=== PATIENT | female | born 1990 | race Caucasian/White ===

== ENCOUNTER → 2020-12-18 | Outpatient (CLI) | payer BC ==
--- NOTE | 2020-12-18 11:07 | Diagnostic Imaging Report ---
INDICATION: survey. TECHNIQUE: Multiple real-time grayscale images were obtained over the gravid uterus. COMPARISON: None. FINDINGS: There is a single live fetus in a breech presentation. heart rate was recorded at 143 BPM. Placenta is anterior. Amniotic fluid volume is normal. survey shows kidneys, bladder, and stomach to be unremarkable. brain is unremarkable. There is a four-chamber heart. There is a three-vessel cord with normal insertion. spine is unremarkable. Biometrical measurements are as follows: Biparietal 4.83 cm, age 20 weeks 5 days. Head circumference 18.07 cm, age 20 weeks 4 days. Abdominal circumference 16.08 cm, age 21 weeks 2 days. Femur length 3.47 cm, age 21 weeks 0 days. Sonographic estimate age: 21 weeks 0 days. Sonographic estimated date of delivery: 04/30/2021. Estimated Weight: 392 gm (+/- 57 gm). LMP percentile: 69%. heart rate: 143 beats per minute. number: 1 of 1. IMPRESSION: Single live IUP of 21 weeks 0 days gestational age. Estimated date of confinement sonographically is 04/30/2021. Dictated by: Dictated on workstation # [id number]
== END ==
LOC: RAD 10:00
PROVIDERS: ATTEND Nurse Practitioner Women's Health
DX: Z34.02 Encounter for supervision of normal first pregnancy, second trimester (principal); Z3A.21 21 weeks gestation of pregnancy
CPT/HCPCS: 76805

== ENCOUNTER 2021-02-02 14:28 | Outpatient (CLI) | payer BC ==
[~2021-02-02] VITALS: Ht 170.2 cm; Wt 116.5 kg
[2021-02-02 14:55] VITALS: BP 121/67
[2021-02-02] MEDS ORDERED: PREN-37 PO (15:06)
[2021-02-02 15:10] VITALS: BP 121/67
[2021-02-02 16:00] VITALS: BP 121/67
--- NOTE | 2021-02-03 08:25 | Physician Query-Final Dx ---
BRET AQUINO 02/03/21 0825: Clinic Account Progress/Dx Physician Query: Please give diagnosis Please include # weeks gestation Date of Service Feb 02, 2021 at 14:28 RIOS LLANOS MD 02/03/21 1710: Clinic Account Progress/Dx DIAGNOSIS: Diagnosis 27 weeks gestation with decreased movement BRET AQUINO Feb 03, 2021 08:25 RIOS LLANOS MD Feb 03, 2021 17:10
== END 2021-02-02 16:01 | disposition home or self-care (01) ==
LOC: WSo 14:28 → LDRP 14:29 → WSo 16:01
PROVIDERS: ATTEND Obstetrics & Gynecology
DX: O36.8120 Decreased fetal movements, second trimester, not applicable or unspecified (principal); Z3A.27 27 weeks gestation of pregnancy
CPT/HCPCS: 99212

== ENCOUNTER 2021-05-05 15:05 | Inpatient (IN) | payer BC ==
[~2021-05-05] VITALS: Ht 170.2 cm; Wt 115.0 kg
[2021-05-05] VITALS (7 sets, daily range): BP systolic 119–131; BP diastolic 59–81
[~2021-05-05 15:05] MED LIST: PREN-37 PO
[2021-05-05] MEDS ORDERED: D5 LR IV SOLUTION 1,000 ML IV ONE (16:12)
--- NOTE | 2021-05-05 17:23 | History & Physical-OB ---
NIRMAL AGUILAR 05/05/21 1723: OB - Chief Complaint & HPI Date/Time Date of Admission: Date of Admission: Date seen by a Provider: May 05, 2021 Time Seen by a Provider: 17:30 Chief Complaint/History OB-Reason for Admission/Chief: Onset of Labor Hx : 1 Hx Para: 0 Expected Date of Delivery: May 03, 2021 Gestational Age in Weeks: 40 Gestational Age in Days: 2 History of Labs O pos Antibody neg RPR NR HBsAb NR HIV NR RI GBS neg Allergies and Home Medications Allergies Coded Allergies: acetaminophen (Verified Allergy, Severe, 02/02/21) seizures codeine (Verified Allergy, Mild, Hives, 02/02/21) Patient Home Medication List Home Medication List Reviewed: Yes Vit/Iron Fumarate/FA ( Tablet) 1 Each Tablet, 1 EACH PO DAILY, (Reported) Entered as Reported by: DELBERT SCHILLING on 02/02/21 1506 OB - History Hx of Present Care: Yes Ultrasounds: Normal mid trimester US Obstetrical Complications: None Information Induced Hypertension: No Maternal Gestational Diabetes: No Obstetrical History Hx : 1 Hx Para: 0 Hx # Term Pregnancies: 0 Hx # Pregnancies: 0 Number of Living Children: 0 Patient Past Medical History Childhood asthma Social History/Family History Smoking Cessation: Former smoker (quit 04/2019) Immunizations Tetanus Booster (TDap): Less than 5yrs (03/10/2021) GBS Status: Negative OB - Admission Exam Physical Exam Heart: Rhythm Normal Lungs: Clear Abdomen: Gravid Extremities: Edema (bilateral lower extremity edema - mild) Cervical Dilatation: 3cm Effacement: Other (60) Station: -2 Membranes: Intact Heart Rate: 130's Accelerations: Accelerations Present Decelerations: No Decelerations Short Term Variability: Present Senior Care Variability: Average (6-25) Contractions on Admission: < 5 Minutes Apart (every 4 minutes) Date/Time Contractions Began;: 05/05/2021, 04:00 Frequency of Contractions: Every 4 minutes Duration: 1 minute Intensity: Moderate (6-8/10) Calderón Scoring Tool (Modified) Dilation (cm): 3-4cm (2) Effacement (%): 51-79% (2) Descent/Station: -2 (1) Cervix Consistency: Soft (2) Cervix Position: Anterior (2) Subtract 1 point for: Postdate (-1), Nulliparity (-1) Calderón Score: 7 Labs GBS - OB - Assessment/Plan/Diagnosis Assessment Assessment: other (Observation for active labor, possible induction due to post-term status) Admission Dx 30 yo @ 40.2 GBS neg Admission Status: Inpatient Order (span 2 midnights) Reason for Inpatient Admission: Observation for active labor, possible induction due to post-term status Plan Plan: Expectant Management MONSE GOMEZ DO 05/06/21 0831: Allergies and Home Medications Allergies Coded Allergies: acetaminophen (Verified Allergy, Severe, 02/02/21) seizures codeine (Verified Allergy, Mild, Hives, 02/02/21) Patient Home Medication List Vit/Iron Fumarate/FA ( Tablet) 1 Each Tablet, 1 EACH PO DAILY, (Reported) Entered as Reported by: DELBERT SCHILLING on 02/02/21 1506 OB - Assessment/Plan/Diagnosis Plan Induction Method: per Misoprostol Protocol Other Plan Verification and Attestation of Medical Student E/M Service A medical student performed and documented this service in my presence. I reviewed and verified all information documented by the medical student and made modifications to such information, when appropriate. I personally performed the physical exam and medical decision making. Monse Gomez, May 06, 2021,08:30 NIRMAL AGUILAR May 05, 2021 17:23 MONSE GOMEZ DO May 06, 2021 08:31
[2021-05-05 17:27] LABS: BASOPHILS % (AUTO) 0 % (0-10); EOSINOPHILS # (AUTO) 0.2 10^3/uL (0.0-0.3); EOSINOPHILS % (AUTO) 1 % (0-10); HEMATOCRIT 38 % (35-52); HEMOGLOBIN 12.8 g/dL (11.5-16.0); LYMPHOCYTES # (AUTO) 4.6 10^3/uL (1.0-4.0); LYMPHOCYTES % (AUTO) 31 % (12-44); MEAN CORPUSCULAR HEMOGLOBIN 32 pg (25-34); MEAN CORPUSCULAR HGB CONC 34 g/dL (32-36); MEAN CORPUSCULAR VOLUME 93 fL (80-99); MEAN PLATELET VOLUME 10.1 fL (9.0-12.2); MONOCYTES # (AUTO) 0.8 10^3/uL (0.0-1.0); MONOCYTES % (AUTO) 5 % (0-12); NEUTROPHILS # (AUTO) 9.2 10^3/uL (1.8-7.8); NEUTROPHILS % (AUTO) 62 % (42-75); PLATELET COUNT 454 10^3/uL (130-400); WHITE BLOOD COUNT 14.8 10^3/uL (4.3-11.0)
[2021-05-05] MEDS ORDERED: NS (IVPB) 250 ML ONE (17:29)
[2021-05-05] MEDS ORDERED: NS (IVPB) 250 ML IV ONE (17:30)
[2021-05-05] MEDS: D5 LR IV SOLUTION 1,000 ML IV SCH ×2 (17:33→23:54)
[2021-05-05 17:44] LABS: EOSINOPHILS % (MANUAL) 2 %; LYMPHOCYTES % (MANUAL) 28 %; MONOCYTES % (MANUAL) 5 %; NEUTROPHILS % (MANUAL) 65 %; RBC MORPH NORMAL
[2021-05-06] VITALS (65 sets, daily range): BP systolic 106–154; BP diastolic 55–94
[2021-05-06] MEDS ORDERED: fentaNYL 2 mcg/ml BUPIVA 0.125 100 ML ONE ×2 (08:15→16:37)
[2021-05-06] MEDS ORDERED: OXYTOCIN PRE-MIX DRIP 500 ML IV ONE ×2 (08:15→20:21)
[2021-05-06] MEDS ORDERED: BUPIVACAINE 0.75% INJECTION 16.7 ML in NS (IVPB) 83.3 ML IV SCH (09:00)
[2021-05-06] MEDS: D5 LR IV SOLUTION 1,000 ML IV SCH ×2 (09:15→16:45)
[2021-05-06] MEDS ORDERED: fentaNYL INJ 100 MCG/2 ML AMP ONE ×4 (09:25→20:37)
[2021-05-06] MEDS ORDERED: OXYTOCIN PRE-MIX DRIP 500 ML IV SCH ×2 (09:30→19:15)
[2021-05-06] MEDS ORDERED: LIDOCAINE PF 2% 5 ML (XYLOCAINE) VIAL ONE ×4 (14:57→20:15)
[2021-05-06] MEDS ORDERED: BUPIVACAINE 0.5% 30 ML (SENSORCAINE) VIAL ONE (17:07)
[2021-05-06] MEDS ORDERED: METOCLOPRAMIDE INJ 10 MG/2 ML (REGLAN) ONE (19:14)
[2021-05-06] MEDS ORDERED: CITRIC ACID/SOB CIT (BICITRA) 30 ML UDC ONE (19:14)
[2021-05-06] MEDS ORDERED: METOCLOPRAMIDE INJ 10 MG/2 ML (REGLAN) IV ONE (19:15)
[2021-05-06] MEDS ORDERED: MEASLES,MUMPS,RUBELLA 1 EA INJ SC SCH (19:15)
[2021-05-06] MEDS ORDERED: LACTATED RINGERS 1,000 ML IV PRN ×2 (19:15)
[2021-05-06] MEDS ORDERED: ONDANSETRON 4 MG/2 ML (SDV) Z0FRAN IVP PRN (19:15)
[2021-05-06] MEDS ORDERED: FAMOTIDINE 20MG/2ML IV (PEPCID) ONE (19:15)
[2021-05-06] MEDS ORDERED: TETANUS,DIPTH,PERTUSS P/F (BOOSTRIX) 0.5 ML VIAL IM SCH (19:15)
[2021-05-06] MEDS ORDERED: CATHETER FLUSH 10 ML SYR IV PRN (19:15)
[2021-05-06] MEDS ORDERED: ceFAZolin 2 GM IV Premixed 50 ML IV ONE (19:15)
[2021-05-06] MEDS ORDERED: CITRIC ACID/SOB CIT (BICITRA) 30 ML UDC PO ONE (19:15)
[2021-05-06] MEDS ORDERED: NALOXONE 0.4 MG/ML 1 ML (NARCAN) VIAL IV PRN (19:15)
--- NOTE | 2021-05-06 19:16 | Discharge Inst-Women's Service ---
Discharge Inst-Women's Serv Depart Medication/Instructions New, Converted or Re-Newed RX: Transmitted to Pharmacy Final Diagnosis POD 2 PLTCS Problems Reviewed?: Yes Consults/Follow Up Additional Follow Up: Yes Orders/Referrals Dr. Gomez in 7-10 days and in 6 weeks Activity Activity: Activity as Tolerated Driving Instructions: No Driving for 1 Week NO SMOKING: NO SMOKING Nothing Inside Vagina: No Douching, No [place], No Tampons Diet Discharge Diet: No Restrictions Symptoms to Report to : Bleeding Excessive, Pain Increased, Fever Over 101 Degrees F, Vaginal Bleeding Increase, Questions/Concerns For Any Problems or Questions: Contact Your Physician Skin/Wound Care Infection Signs and Symptoms: Increased Redness, Foul Odor of Wound, Increased Drainage, Skin Itchy or Has a Rash, Increased Swelling, Temperature Above 101 F Operative Area Clean and Dry: Keep Incision Clean/Dry Stitches/[place]/Dermabond: Dermabond, Care of Stitches Bathing Instructions: MONSE Spear DO May 06, 2021 19:16
[2021-05-06] MEDS ORDERED: DOCU100C37 PO (19:18)
[2021-05-06] MEDS ORDERED: OXYC1TAB87 PO (19:18)
[2021-05-06] MEDS ORDERED: IBUP-844 PO (19:18)
--- NOTE | 2021-05-06 19:24 | Progress Note ---
Standard Progress Note Progress Notes/Assess & Plan Date Seen by a Provider: May 06, 2021 Time Seen by a Provider: 19:00 Progress/Assessment & Plan Patient admitted last night for postdates IOL. She received misoprostol PO overnight, and AROM and Pitocin augmentation was started this AM. She had an epidural placed, and progressed to 5 cm, at approximately 15:30, there was a notable caput and suspicion of OP presentation. She continued to contract regularly on Pitocin augmentation. However, at 1900 she was found to have made no cervical change, nor decent in station. Due to suspected OP and CPD, discussion was made to proceed with primary delivery. Risk were reviewed. She was given the alternative to continue with induction and pitocin augmentation, but wished to proceed with delivery. Will await OR crew to begin. MONSE ALLEN DO May 06, 2021 19:24
[2021-05-06] MEDS ORDERED: ceFAZolin 2 GM IV Premixed 50 ML ONE (19:28)
[2021-05-06] MEDS ORDERED: KETOROLAC 30 MG/ML VIAL ONE (19:54)
[2021-05-06] MEDS ORDERED: ONDANSETRON 4 MG/2 ML (SDV) Z0FRAN ONE (19:54)
[2021-05-06] MEDS ORDERED: METHYLERGONOVINE 0.2 MG/ML (METHERGINE) AMP ONE (20:11)
[2021-05-06] MEDS ORDERED: CATHETER FLUSH 10 ML SYR IV SCH (22:00)
[2021-05-06] MEDS: DOCUSATE SODIUM 100 MG (COLACE) CAP PO SCH (22:11)
[2021-05-06] MEDS: KETOROLAC 30 MG/ML VIAL IV SCH (22:12)
[2021-05-06] MEDS: oxyCODONE/APAP 5/325MG (PERCOCET 5) TABLET PO PRN ×2 (22:13→22:53)
[2021-05-07] MEDS: METOCLOPRAMIDE 10 MG (REGLAN) TAB PO SCH ×4 (00:37→19:35)
[2021-05-07 00:41] VITALS: BP 124/65
--- NOTE | 2021-05-07 01:55 | OPERATIVE REPORT ---
DATE OF SERVICE: PREOPERATIVE DIAGNOSES: 1. A 30-year-old G1, P0 at 40 weeks and 3 days gestation. 2. Cephalopelvic disproportion suspected occiput posterior. POSTOPERATIVE DIAGNOSES: 1. A 30-year-old G1, P0 at 40 weeks and 3 days gestation. 2. Cephalopelvic disproportion suspected occiput posterior. 3. Confirmed occiput posterior. SURGEON: Wilian Allen DO. ANESTHESIA: Epidural, which was bolused. ESTIMATED BLOOD LOSS: 600 mL. URINE OUTPUT: 100 mL clear at the end of the procedure. FLUIDS: 1000 mL lactated Ringer's solution. FINDINGS: A live male weighing 7 pounds 10 ounces, Apgars of 8 and 9. Grossly normal appearing uterus, bilateral fallopian tubes and ovaries. SPECIMEN SENT: None. INDICATIONS FOR PROCEDURE: This 30-year-old female patient who was admitted for induction of labor for postdates. Her cervix was unfavorable and she received cervical ripening overnight. She can see my preoperative note for complete details pertaining to the patient's labor course and indication for . OPERATIVE REPORT IN DETAIL: Once in the operating room, epidural analgesia was bolused and found to be adequate. She was placed in supine position with leftward tilt, prepped and draped in normal sterile fashion. Timeout was performed and anesthesia was tested. I then make a Pfannenstiel skin incision with a knife and carried down to underlying fascia using Bovie cautery. The fascial incision extended laterally using Bovie cautery. The superior aspect of the fascial incision was then grasped with Aixa clamps, tented up and dissected off the underlying rectus muscles. The inferior aspect of fascial incision was then grasped with Aixa clamps, tented up and dissected off the underlying rectus muscles. Rectus muscles were then dissected down the midline using sharp dissection, which exposed the peritoneum, which I entered bluntly and extended using blunt traction. Vipin ring retractor was placed in the peritoneal incision, which offers excellent lateral sidewall retraction. I identified the lower uterine segment, which was found to be thinned out and make a low transverse incision through the vesicouterine peritoneum and bluntly dissected off the lower uterine segment, creating a bladder flap. I then proceeded with myotomy until membranes were visualized, at which point I extended the uterine incision laterally and superiorly using bandage scissors. The was found in the vertex presentation, occiput posterior. With gentle fundal pressure, the 's head was elevated up the incision where it delivered through the incision. The nares and oropharynx were bulb suctioned. Anterior and posterior shoulders were delivered. The infant was then brought to the operative field with cord doubly clamped and cut and was handed off to waiting nurses in attendance. Cord blood was collected, 3-vessel cord with intact placenta was delivered spontaneously thereafter. IV Pitocin was initiated to facilitate uterine contraction. Uterine fundus confirmed by manual massage. The uterus was exteriorized and cleared of all endometrial clots and debris. I then proceeded with closing the uterine incision using 0 Vicryl suture in a running locked fashion. Second layer of imbricating 0 Monocryl was placed. Excellent hemostasis was noted after doing this. I then placed the uterus back in the pelvis and copiously irrigated the pelvis using normal saline. Once again, there was no active bleeding noted from any of my dissection planes. I placed Surgicel over the apex with my incision due to some persistent oozing, but no active bleeding. I then also covered this with Interceed. I then removed the Vipin ring retractor and then proceeded with closing the peritoneum using 3-0 Vicryl suture in a running fashion. The rectus muscle reapproximated using 3-0 Vicryl suture in interrupted fashion. The fascia was reapproximated using 0 Vicryl suture in a running fashion. The subcutaneous tissue was reapproximated using 3-0 plain interrupted subcutaneous stitch and skin reapproximated using 4-0 Monocryl running subcuticular. Dermabond was applied to incision and sterile dressing with adhesive white tape. The patient tolerated the procedure well and sent to recovery area in stable condition. Lap and sponge counts were correct at the end of the procedure. Instrument counts correct as well. Two grams of Ancef given preoperatively for infection prophylaxis. Also 0.2 mg of Methergine are given IM intraoperatively due to some persistent uterine atony. Job ID: [id number] DocumentID: [id number] Dictated Date: 05/06/2021 20:43:04 Roving Sizer Date: 05/07/2021 01:55:14 Dictated By: WILIAN ALLEN DO
[2021-05-07] MEDS: oxyCODONE/APAP 5/325MG (PERCOCET 5) TABLET PO PRN ×3 (03:45→20:54)
[2021-05-07 03:48] VITALS: BP 119/75
[2021-05-07] MEDS: KETOROLAC 30 MG/ML VIAL IV SCH (06:09)
[2021-05-07 06:21] LABS: BASOPHILS % (AUTO) 0 % (0-10); EOSINOPHILS % (AUTO) 0 % (0-10); HEMATOCRIT 35 % (35-52); HEMOGLOBIN 11.6 g/dL (11.5-16.0); LYMPHOCYTES # (AUTO) 2.7 10^3/uL (1.0-4.0); LYMPHOCYTES % (AUTO) 11 % (12-44); MEAN CORPUSCULAR HEMOGLOBIN 31 pg (25-34); MEAN CORPUSCULAR HGB CONC 33 g/dL (32-36); MEAN CORPUSCULAR VOLUME 93 fL (80-99); MONOCYTES # (AUTO) 1.3 10^3/uL (0.0-1.0); MONOCYTES % (AUTO) 6 % (0-12); NEUTROPHILS # (AUTO) 19.5 10^3/uL (1.8-7.8); NEUTROPHILS % (AUTO) 82 % (42-75); PLATELET COUNT 360 10^3/uL (130-400); WHITE BLOOD COUNT 23.7 10^3/uL (4.3-11.0)
[2021-05-07 09:11] VITALS: BP 105/58
[2021-05-07] MEDS: DOCUSATE SODIUM 100 MG (COLACE) CAP PO SCH ×2 (09:18→21:06)
--- NOTE | 2021-05-07 10:34 | Postpartum Progress Note ---
Post Op Post-operative Day #1 Subjective: Patient is without complaints. Ambulating, voiding after kline removed. Tolerating a regular diet without nausea or vomiting. Normal lochia. Pain is well controlled with oral pain medications. . Objective: Please see below for vitals, which have been reviewed. Physical Exam: General - Alert and oriented, no apparent distress Abdomen - Soft, appropriately tender to palpation, non-distended, fundus firm at umbilicus Incision - Pfannenstiel incision is clean, dry and intact with skin glue; no erythema or induration, no drainage Extremities - no edema, negative Esperanza's bilaterally Assessment: Post-operative day #1, status post primary low transverse section due to CPD. Recovering well, hemodynamically stable Plan: Routine post-operative care. Viable male infant. Desires circumcision. Encourage breast feeding. VTE prophylaxis: SCDs. Encourage ambulation. Ferrous sulfate supplementation. Plan for discharge tomorrow. Vitals - Labs Vital Signs - I&O Vital Signs Date Time Temp Pulse Resp B/P (MAP) Pulse Ox O2 Delivery O2 Flow Rate FiO2 05/07/21 09:11 36.7 73 18 105/58 (74) 97 Room Air 05/07/21 03:48 36.7 73 18 119/75 (90) 97 Room Air 05/07/21 00:41 36.7 73 18 124/65 (84) 97 Room Air 05/06/21 22:17 37.0 75 18 136/92 (107) 95 Room Air 05/06/21 21:30 37.4 14 154/94 (114) 97 Room Air 05/06/21 21:27 Room Air 05/06/21 21:20 Room Air 05/06/21 21:18 19 143/90 (107) 96 Room Air 05/06/21 21:13 Room Air 05/06/21 21:09 21 146/87 (106) 97 Room Air 05/06/21 21:00 21 136/92 (107) 98 Room Air 05/06/21 21:00 Room Air 05/06/21 20:45 Room Air 05/06/21 20:45 38.8 22 132/94 (107) 98 Room Air 05/06/21 19:33 100 20 119/60 (79) 99 Non Rebreather 10.00 05/06/21 19:24 38.2 05/06/21 19:19 90 20 124/72 (89) 100 Non Rebreather 10.00 05/06/21 19:03 95 20 133/80 (97) 100 Non Rebreather 10.00 05/06/21 18:48 84 18 121/73 (89) 100 Non Rebreather 10.00 05/06/21 18:32 79 18 128/71 (90) 100 Room Air 05/06/21 18:16 81 18 133/72 (92) 99 Room Air 05/06/21 18:01 37.7 82 18 126/74 (91) 99 Non Rebreather 10.00 05/06/21 17:47 75 18 126/74 (91) 99 Non Rebreather 10.00 05/06/21 17:30 84 18 124/72 (89) 100 Non Rebreather 10.00 05/06/21 17:15 86 18 124/71 (88) 99 Non Rebreather 10.00 05/06/21 17:03 99 18 127/82 (97) 99 Non Rebreather 10.00 05/06/21 16:47 85 18 140/83 (102) 99 Non Rebreather 10.00 05/06/21 16:32 37.6 79 18 133/75 (94) 99 Non Rebreather 10.00 05/06/21 16:03 82 18 126/73 (90) 100 Non Rebreather 10.00 05/06/21 15:47 75 18 116/71 (86) 100 Non Rebreather 10.00 05/06/21 15:32 37.7 78 18 111/63 (79) 100 Room Air 05/06/21 15:18 77 18 116/62 (80) 100 Room Air 05/06/21 15:00 82 18 119/78 (92) 100 Room Air 05/06/21 14:45 85 18 131/73 (92) 100 Room Air 05/06/21 14:30 79 18 128/64 (85) 100 Room Air 05/06/21 14:15 79 18 131/65 (87) 99 Room Air 05/06/21 14:00 81 18 127/64 (85) 100 Room Air 05/06/21 13:45 90 18 122/69 (86) 99 Room Air 05/06/21 13:30 37.7 89 18 121/67 (85) 99 Room Air 05/06/21 13:18 88 18 128/71 (90) 100 Room Air 05/06/21 13:03 89 18 113/55 (74) 100 Room Air 05/06/21 12:48 37.6 94 18 119/71 (87) 99 Room Air 05/06/21 12:33 94 18 119/71 (87) 99 Room Air 05/06/21 12:18 78 18 116/61 (79) 100 Room Air 05/06/21 12:03 81 18 121/71 (88) 99 Room Air 05/06/21 11:50 83 18 120/62 (81) 99 Room Air 05/06/21 11:30 80 18 112/62 (79) 98 Room Air 05/06/21 11:15 77 18 109/65 (80) 98 Room Air 05/06/21 11:00 36.9 80 18 121/75 (90) 100 Room Air 05/06/21 10:45 75 18 106/64 (78) 97 Room Air 05/06/21 10:30 93 18 107/60 (76) 100 Room Air I & O 05/07/21 07:00 Intake Total 2761 ml Output Total 400 ml Balance 2361 ml Labs Laboratory Tests 05/07/21 05:41: White Blood Count 23.7H, Red Blood Count 3.76L, Hemoglobin 11.6, Hematocrit 35, Mean Corpuscular Volume 93, Mean Corpuscular Hemoglobin 31, Mean Corpuscular Hemoglobin Concent 33, Red Cell Distribution Width 14.1, Platelet Count 360, Mean Platelet Volume 10.0, Immature Granulocyte % (Auto) 1, Neutrophils (%) (Auto) 82H, Lymphocytes (%) (Auto) 11L, Monocytes (%) (Auto) 6, Eosinophils (%) (Auto) 0, Basophils (%) (Auto) 0, Neutrophils # (Auto) 19.5H, Lymphocytes # (Auto) 2.7, Monocytes # (Auto) 1.3H, Eosinophils # (Auto) 0.0, Basophils # (Auto) 0.0, Immature Granulocyte # (Auto) 0.1 MICHA VARELA MD May 07, 2021 10:34
[2021-05-07 12:43] VITALS: BP 124/63
[2021-05-07] MEDS ORDERED: IBUPROFEN 600 MG (MOTRIN) TAB PO ONE ×2 (12:59→19:28)
--- NOTE | 2021-05-07 13:30 | Anesthesia-Regional Post-Op ---
Regional Patient Condition Mental Status: Alert, Oriented x3 Circulation: Same as Pre-Op Headache: Absent Sensation: Full Recovery Motor Block: Absent Post Op Complications Complications None Follow Up Care/Instructions Patient Instructions None needed. Anesthesia/Patient Condition Patient is doing well, no complaints, stable vital signs, no apparent adverse anesthesia problems. No complications reported per nursing. D/C home per [facility] [place]: Yes CAT PLEITEZ CRNA May 07, 2021 13:30
[2021-05-07 19:32] VITALS: BP 122/59
[2021-05-08] MEDS ORDERED: IBUPROFEN 600 MG (MOTRIN) TAB PO SCH
[2021-05-08 01:36] VITALS: BP 113/73
[2021-05-08] MEDS: IBUPROFEN 600 MG (MOTRIN) TAB PO SCH ×3 (01:38→15:28)
[2021-05-08] MEDS: METOCLOPRAMIDE 10 MG (REGLAN) TAB PO SCH ×2 (01:38→08:42)
[2021-05-08 08:40] VITALS: BP 118/71
[2021-05-08] MEDS: DOCUSATE SODIUM 100 MG (COLACE) CAP PO SCH (08:42)
[2021-05-08] MEDS: oxyCODONE/APAP 5/325MG (PERCOCET 5) TABLET PO PRN (08:46)
--- NOTE | 2021-05-08 10:43 | Postpartum Progress Note ---
Post Op Post-operative Day #2 Subjective: Patient is without complaints. Ambulating, voiding after kline removed. Tolerating a regular diet without nausea or vomiting. Normal lochia. Pain is well controlled with oral pain medications. Passing flatus and having bowel movements. Bottlefeeding. She is interested in discharge home today. Objective: Vital Signs 05/06/21 05/08/21 19:33 08:40 Temp 37.0 Pulse 99 Resp 18 B/P (MAP) 118/71 (87) Pulse Ox 99 O2 Delivery Room Air O2 Flow Rate 10.00 Physical Exam: General - Alert and oriented, no apparent distress Abdomen - Soft, appropriately tender to palpation, non-distended, fundus firm at umbilicus Incision - clean, dry and intact; no erythema or induration, no drainage Extremities - no edema, negative Esperanza's bilaterally Assessment: Post-operative day #2, status post primary low transverse section due to CPD. Recovering well, hemodynamically stable Plan: Routine post-operative care. VMI, circ completed. Encourage breast feeding. VTE prophylaxis: SCDs.Encourage ambulation. Ferrous sulfate supplementation. Plan for discharge today with plans for follow-up in 1 week for an incision check and 6 weeks for a examination. [] Vitals - Labs Vital Signs - I&O Vital Signs Date Time Temp Pulse Resp B/P (MAP) Pulse Ox O2 Delivery O2 Flow Rate FiO2 05/08/21 08:40 37.0 99 18 118/71 (87) 99 Room Air 05/08/21 01:36 36.9 75 17 113/73 (86) 97 Room Air 05/07/21 19:32 36.9 89 20 122/59 (80) 100 Room Air 05/07/21 12:43 36.7 84 18 124/63 (83) 98 Room Air MICHA VARELA MD May 08, 2021 10:43
== END 2021-05-08 16:15 | disposition home or self-care (01) | DRG 788 ==
LOC: WSo 15:05 → LDRP 15:19 → WSo 17:01 → LDRP 17:02
PROVIDERS: ADMIT Obstetrics & Gynecology; ATTEND Obstetrics & Gynecology
PROC: 3E0DXGC Introduction of Other Therapeutic Substance into Mouth and Pharynx, External Approach (ICD-10-PCS; 2021-05-06)
PROC: 10907ZC Drainage of Amniotic Fluid, Therapeutic from Products of Conception, Via Natural or Artificial Opening (ICD-10-PCS; 2021-05-06)
PROC: 10D00Z1 Extraction of Products of Conception, Low, Open Approach (ICD-10-PCS; principal; 2021-05-06 19:44)
DX: O48.0 Post-term pregnancy (principal); O65.4 Obstructed labor due to fetopelvic disproportion, unspecified; O64.0XX0 Obstructed labor due to incomplete rotation of fetal head, not applicable or unspecified; Z3A.40 40 weeks gestation of pregnancy; Z37.0 Single live birth; Z88.6 Allergy status to analgesic agent; Z87.891 Personal history of nicotine dependence; Z88.5 Allergy status to narcotic agent
CPT/HCPCS: 36415; 85007; 85025; 85027; 86850; 86900; 86901; 99212